=== PATIENT | female | born 1980 | race Two or more races ===

== ENCOUNTER → 2020-12-30 | Outpatient (CLI) | payer OTHER ==
--- NOTE | 2020-12-30 14:20 | RAD ---
EXAM: Bilateral digital diagnostic mammogram with tomosynthesis; bilateral breast sonogram. HISTORY: 40-year-old female presents with palpable breast lumps. TECHNIQUE: Full-field digital craniocaudal and mediolateral oblique 2D and 3D tomosynthesis images of both breasts are obtained for evaluation. Computer aided detection was applied. Sonographic imaging of both breasts targeted to sites of bowel concern was also performed. COMPARISON: Mammogram and sonogram dated 07/09/2018. BREAST PARENCHYMAL DENSITY: Level D - Extremely dense. FINDINGS: There are multiple circumscribed masses within both breasts, consistent with cysts demonstr ated on a prior sonogram. There has been slight interval increase in a dominant cyst within the centr al aspect of the right breast. The remainder the cysts are similar in appearance when allowing for di fferences in imaging technique. Sonographic imaging of the left breast targeted to the site of concern demonstrates a 2.6 cm simple c yst with adjacent 2.0 cm simple cyst at the 10:00 position 4 cm from the nipple. These previously mandeep sured 2.5 cm and 1.2 cm. No suspicious solid lesion is seen. Sonographic imaging of the right breast demonstrates a 1.1 cm cyst at the 10:00 position 10 cm from t he nipple. This appears to be decreased compared to the prior exam. The additional right breast cysts demonstrated on the prior sonogram is not assessed on this exam. IMPRESSION: 1. Multiple benign breast cysts, the largest of which on the left consists of adjacent cysts measurin g 2.6 cm and 2.0 cm at the 10:00 position 4 cm from the nipple. This corresponds with the site of pal pable concern. 2. No new suspicious mammographic or sonographic finding. 3. BI-RADS Category 2: Benign finding(s). RECOMMENDATION: Annual mammography is recommended. Continued clinical follow-up of palpable abnormali ties is also recommended. If your mammogram demonstrates that you have dense breast tissue, which could hide abnormalities, and if you have other risk factors for breast cancer that have been identified, you might benefit from s upplemental screening tests that may be suggested by your ordering physician. Dense breast tissue, i n and of itself, is a relatively common condition. This information is not provided to cause undue c oncern, but rather to raise your awareness and to promote discussion with your physician regarding th e presence of other risk factors, in addition to dense breast tissue. A report of your mammography re sults will be sent to you and your physician. You should contact your physician if you have any ques tions or concerns regarding this report. Mammography is a sensitive method for finding small breast cancers, but it does not detect them all a nd is not a substitute for careful clinical examination. A negative mammogram does not negate a clin ically suspicious finding and should not result in delay in biopsying a clinically suspicious abnorma lity. PQRS compliance statement - Patient information was entered into a reminder system with a target due date for the next mammogram. "Our facility is accredited by the [employer] Mammography [employer]." Electronically signed by: Jennifer Mills MD (12/30/2020 2:17 PM) [id number]
== END ==
LOC: MAMMO 12:59
PROVIDERS: ATTEND Nurse Practitioner Family
DX: N60.02 Solitary cyst of left breast (principal); N60.01 Solitary cyst of right breast
CPT/HCPCS: 76642; 77066; G0279; 77062

== ENCOUNTER 2021-03-02 21:57 | Emergency (ER) | payer OTHER ==
[~2021-03-02] VITALS: Ht 152.4 cm; Wt 75.9 kg
--- NOTE | 2021-03-02 22:13 | PHYS DOC ---
Adult General HPI HPI Patient is a 40-year-old female who presents with a chief complaint of body aches and some shakiness over the last couple of days. Denies any recent travel, traumas, illnesses, fevers, chest pain, shortness of breath, abdominal pain, nausea, vomiting, dysuria, hematuria or blood in the stool. Denies any numbness/weakness/tingling. Denies any trouble sitting, standing or walking. Review of Systems Review of Systems Review of systems otherwise unremarkable except noted in HPI Physical Exam Physical Exam Constitutional: Well developed, well nourished, no acute distress, non-toxic appearance. [] HENT: Normocephalic, atraumatic, bilateral external ears normal, oropharynx moist, no oral exudates, nose normal. [] Eyes: PERRLA, EOMI, conjunctiva normal, no discharge. [] Neck: Normal range of motion, no tenderness, supple, no stridor. [] Cardiovascular:Heart rate regular rhythm, no murmur [] Lungs & Thorax: Bilateral breath sounds clear to auscultation [] Abdomen: soft, no tenderness, no masses, no pulsatile masses. [] Skin: Warm, dry, no erythema, no rash. [] Back: No tenderness, no CVA tenderness. [] Extremities: No tenderness, no cyanosis, no clubbing, ROM intact, no edema. [] Neurologic: Alert and oriented X 3, normal motor function, normal sensory function, able to sit, stand and walk without issue no focal deficits noted. [] Psychologic: Affect normal, judgement normal, mood normal. [] EKG EKG [] Radiology/Procedures Radiology/Procedures [] Heart Score C/O Chest Pain: No Risk Factors: Risk Factors: DM, Current or recent (<one month) smoker, HTN, HLP, family history of CAD, obesity. Risk Scores: Risk Factors: DM, Current or recent (<one month) smoker, HTN, HLP, family history of CAD, obesity. Course & Med Decision Making Course & Med Decision Making Patient is a 40-year-old female who presents with some body aches and some weird tingling in her left shoulder and arm Vital signs initially notable for borderline tachycardia and hypertension which resolved in the ED. Physical exam noted above. EKG within normal rhythm, normal QRS, normal QTC, no STEMI, STEMI normal. Chest x-ray nonconcerning. Discussed all findings with family. Advised that although no emergent issues were found currently that does not mean there is some going on that needs to be reevaluated. Advised to call primary care physician in the morning to set up a post ER follow-up visit. Gave return precautions to the ED. Family grateful, verbalized understanding and agreed with plan of discharge. [] Dragon Disclaimer Dragon Disclaimer This electronic medical record was generated, in whole or in part, using a voice recognition dictation system. Departure Departure: Impression: Primary Impression: Tingling in extremities Disposition: HOME / SELF CARE / HOMELESS Condition: GOOD Referrals: LNEY BRENNAN (PCP) Patient Instructions: Paresthesia Additional Instructions: Thank you for coming into the emergency department tonight and allowing us to take care of you. Please read the attached information carefully to go over things we discussed. As we discussed although nothing emergent was found here today, but did not mean there is something going on that needs to be continually evaluated or reevaluated. Advised to follow-up in the morning with primary care physician to set up a post ER follow-up visit. Gave return precautions to the ED. Family grateful, verbalized understanding and agreed with plan of discharge. CALEB ROSALES MD Mar 02, 2021 22:13
--- NOTE | 2021-03-02 22:19 | EKG ---
[address] [address] Test Date: 2021-03-02 Test Time: 22:11:57 Pat Name: JAY JIMENEZ Department: Room: Gender: F Laboratory Manager: : [id number] Requested By: CALEB ROSALES Order Number: [id number] Reading MD: Agustín Garvey MD Measurements Intervals [place] Rate: 85 P: 26 TN: 158 QRS: 23 QRSD: 84 T: 52 QT: 364 QTc: 433 Interpretive Statements SINUS RHYTHM Electronically Signed On 03-03-2021 8:41:40 RADIATION TECHNICIAN by Agustín Garvey MD
--- NOTE | 2021-03-02 22:42 | RAD ---
EXAMINATION: Chest radiograph. VIEWS: 1 COMPARISON: None INDICATION:40 years, Female, left arm numbness, shortness of breath. FINDINGS: Normal cardiomediastinal silhouette. No focal consolidation. No pleural effusion or pneumothorax. No acute osseous process. IMPRESSION: No acute cardiopulmonary process. Electronically signed by: Lorie Shelby MD (03/02/2021 10:39 PM) [facility]
[2021-03-02 23:32] VITALS: BP 122/88
== END 2021-03-02 23:36 | disposition home or self-care (01) ==
LOC: ER 21:57
DX: R20.2 Paresthesia of skin (principal)
CPT/HCPCS: 36415; 71045; 84484; 93005; 99285-25

== ENCOUNTER → 2021-05-03 | Outpatient (CLI) | payer OTHER ==
--- NOTE | 2021-05-03 09:44 | RAD ---
EXAMINATION: US ABDOMEN COMPLETE CLINICAL HISTORY: FATTY LIVER, ELEVATED LFTs. TECHNIQUE: Grayscale sonographic imaging of the abdomen obtained with color Doppler imaging and spect ral Doppler analysis as indicated. COMPARISON: None FINDINGS: Pancreas: Poorly visualized. Liver: - Echotexture: Heterogeneous - Echogenicity: Increased - Surface contour: Slightly nodular contour suggested on multiple images. - Lesions: None Biliary: No intrahepatic biliary duct dilation. - CBD: 4 mm. - Gallbladder: Cholecystectomy. Spleen: - Craniocaudal length: 10.9 cm. - Lesions: None Right Kidney: - Renal length: 10.1 cm - Parenchyma: Normal parenchymal echogenicity. Normal parenchymal thickness. - Collecting system: No hydronephrosis. - Calculus: No echogenic, shadowing calculus. - Lesion: None Left Kidney: - Renal length: 10.0 cm - Parenchyma: Normal parenchymal echogenicity. Normal parenchymal thickness. - Collecting system: No hydronephrosis. - Calculus: No echogenic, shadowing calculus. - Lesion: None IVC: Imaged segments patent. Abdominal Aorta: Imaged segments patent. Ascites: None. IMPRESSION: Morphologic changes in the liver suspicious for cirrhosis, correlate clinically. Poorly visualized pancreas. Electronically signed by: Paul Caruso DO (05/03/2021 9:08 AM) [id number]
== END ==
LOC: US 07:41
PROVIDERS: ATTEND Nurse Practitioner Family
DX: R94.5 Abnormal results of liver function studies (principal); Z90.49 Acquired absence of other specified parts of digestive tract
CPT/HCPCS: 76700